=== PATIENT | female | born 1955 | race Caucasian/White ===

== ENCOUNTER → 2016-09-08 | Outpatient (CLI) | payer BC ==
[~2016-09-08] MED LIST: CHOL1000 PO; CHOL100027 PO; DILT120C67 PO; ESTR10TA PV; LEVO75TA PO; MULTTAB58 PO; NUTR1000 PO; PANT40TA PO; WARF-281 PO; WARF10TA4 PO; ZOLE5INJ IV
--- NOTE | 2016-09-08 12:40 | MAMMOGRAPHY REPORT ---
UNILATERAL LEFT DIGITAL DIAGNOSTIC MAMMOGRAM TOMOSYNTHESIS WITH CAD AND TARGETED LEFT ULTRASOUND: CLINICAL HISTORY: Six-month follow-up of questionable distortion in the left breast mammographically . The patient also reports a new area of focal pain in the left breast for approximately one month, without any associated lumps. TECHNIQUE: Breast tomosynthesis in addition to standard 2D mammography was performed. Current study was also evaluated with a Computer Aided Detection (CAD) system. Left CC and MLO 2-D and tomosynth esis images were obtained. COMPARISON: Comparison is made to exams dated: 04/23/2016 mammogram, 04/14/2016 mammogram, 04/10/2015 mammogram, 02/15/2014 mammogram, and 02/02/2013 mammogram - [facility]. BREAST COMPOSITION: The tissue of the left breast is heterogeneously dense, which may obscure small masses. FINDINGS: A triangle marker beebe the site of focal pain in the left lower inner quadrant. There a re no suspicious masses, calcifications, or areas of architectural distortion noted in the left treva st mammographically. There has been no significant interval change compared to prior exams. The pr eviously described area of questionable distortion seen within the left breast is not persist on the current exam, with appearance of this region similar to prior exams dating back to at least 2007. Targeted ultrasound was performed of the left lower inner quadrant at the site of pain pointed out b y the patient. Sonographically normal tissue is seen in this region, without evidence of a mass or other suspicious sonographic abnormality. IMPRESSION: ACR BI-RADS CATEGORY 2: BENIGN, TARGETED ULTRASOUND ACR BI-RADS CATEGORY 2: BENIGN No suspicious mammographic or sonographic abnormality at the site of focal left breast pain. No per sistent architectural distortion is seen on the current exam; findings are benign and compatible wit h normal fibroglandular tissue. There is no mammographic or targeted sonographic evidence of malign jackie. Return to annual mammogram screening schedule is recommended, due March 2017. Also recomm end clinical follow-up for left breast pain. The patient has been verbally notified of the results. Approximately 10% of breast cancers are not detected with mammography. A negative mammographic repor t should not delay biopsy if a clinically suggestive mass is present. Laura Gonzales M.D. ah/:09/08/2016 08:42:05 Cvicu Rn: Marcela NGUYEN(R)(M), [facility] letter sent: Normal / BI-RADS Code: ACR BI-RADS Category 2: Benign Ultrasound BI-RADS: ACR BI-RADS Category 2: Benign
== END | disposition home or self-care (01) ==
LOC: C.MAMM 08:08
PROVIDERS: ATTEND Obstetrics & Gynecology
DX: Z09 Encounter for follow-up examination after completed treatment for conditions other than malignant neoplasm (principal); N64.4 Mastodynia; R92.2 Inconclusive mammogram

== ENCOUNTER 2016-10-09 21:25 | Emergency (ER) | payer BC ==
[~2016-10-09] VITALS: Ht 167.6 cm; Wt 57.3 kg
[~2016-10-09 21:25] MED LIST changes: -CHOL1000 PO
[2016-10-09 21:32] VITALS: TEMP 37.1; Ht 167.6 cm; Wt 57.3 kg
[2016-10-09 22:34] LABS: HEMATOCRIT 40.2 % (37-47); MEAN CELL VOLUME 91.4 fL (80-100); MEAN CORPUSCULAR HEMOGLOBIN 30.9 pg (25-34); MEAN CORPUSCULAR HGB CONC 33.8 g/dl (32-36); MEAN PLATELET VOLUME 10.8 fL (7.4-10.4); PLATELET COUNT 205 K/uL (130-400); WHITE BLOOD COUNT 4.83 K/uL (4.8-10.8)
--- NOTE | 2016-10-09 22:41 | DIAGNOSTIC IMAGING REPORT ---
HEAD CT NONCONTRAST CT DOSE: 537.48 mGy.cm HISTORY: head injury, on coumadin TECHNIQUE: Multiaxial CT images of the head were performed without the use of intravenous contrast. Automated exposure control was utilized for this study. Comparison: Head CT 11/09/2006. Findings: The paranasal sinuses and mastoid air cells are clear. The calvarium and skull base are intact. The ventricles and sulci are within normal limits. There is no mass, hematoma, midline shift, or acute infarct. Impression: No acute intracranial abnormality. Electronically signed by: Lazaro Sequeira M.D. 10/09/2016 10:40 PM Dictated Date/Time: 10/09/2016 10:35 PM
[2016-10-09] MEDS ORDERED: CHOL1000 PO (22:58)
[2016-10-09 23:09] LABS: INR 1.9 (0.9-1.1); PARTIAL THROMBOPLASTIN RATIO 1.3; PROTHROMBIN TIME (PATIENT) 20.9 SECONDS (9.0-12.0)
[2016-10-09 23:26] LABS: BUN/CREATININE RATIO 11.1 (10-20); CALCIUM 8.4 mg/dl (8.5-10.1); CREATININE 0.81 mg/dl (0.60-1.20); POTASSIUM 4.1 mmol/L (3.5-5.1)
[2016-10-09 23:59] VITALS: BP 129/87; PULSE 76; O2SAT 98
[2016-10-10 01:16] LABS: BASO ABS # 0.05 K/uL (0-0.2); COMPLETE YES; EOS % 1.4 %; IG% 0.2 %; LYMPH % 50.5 %; LYMPH ABS # 2.44 K/uL (1.2-3.4); MONO % 8.5 %; NEUT % 38.4 %
--- NOTE | 2016-10-10 02:51 | EMERGENCY ROOM VISIT NOTE ---
History First contact with patient: 21:57 Chief Complaint: HEAD INJURY (MINOR) Stated Complaint: HIT HEAD ON WARFARIN,PAIN BEHIND EYE History of Present Illness The patient is a 60 year old female who presents to the Emergency Room with complaints of head injury tonight he is on Coumadin for history of blood clots who has a clotting disorder. Coumadin 2 weeks ago was 2.5. Patient states she was getting up from sitting position and accidentally hit her head on the wall. She complains of a headache described as throbbing, ranging in severity 5 out of 10 to the right temporal orbital region. Nothing makes it better or worse. Patient denies nausea, vomiting, diarrhea, facial pain, dental pain, cervical pain, loss of consciousness, chest pain, dyspnea, abdominal pain or any other medical complaints. Review of Systems See HPI for pertinent positives & negatives. A total of 10 systems reviewed and were otherwise negative. Past Medical/Surgical History Medical Problems: (1) Antiphospholipid antibody syndrome (2) Beta-2 glycoprotein (3) Lupus anticoagulant syndrome (4) Myocardial infarct Family History Hypertension Kidney disease Social History Smoking Status: Never Smoker Alcohol Use: none Drug Use: none Marital Status: Housing Status: lives with family Occupation Status: employed Current/Historical Medications Scheduled Cholecalciferol (Vitamin D3), 1 TAB PO DAILY Diltiazem Hcl Extended Release (Diltiazem Hcl Er), 120 MG PO DAILY Estradiol Vaginal (Vagifem), 1 TAB PV 2XWK Levothyroxine Sodium (Synthroid), 75 MCG PO DAILY Multiple Vitamin (Multivitamin), 1 TABLET PO DAILY Nutritional Supplements ([place] Oil), 500 MG PO DAILY Pantoprazole (Protonix), 40 MG PO DAILY Warfarin Sod (Jantoven), 5 MG PO WK Warfarin Sodium (Warfarin Sodium), 10 MG PO 6XWK Zoledronic Acid (Reclast), 5 MG IV YEARLY Allergies Coded Allergies: Adhesives (Verified Allergy, Intermediate, "BAND-AIDS" - REDNESS/ITCHING, 10/09/16) Azithromycin (Verified Allergy, Mild, ITCHING, 10/09/16) Succinylcholine (Verified Adverse Reaction, Intermediate, "muscle contraction for days", 10/09/16) Physical Exam Vital Signs Date Time Temp Pulse Resp B/P Pulse Ox O2 Delivery O2 Flow Rate FiO2 10/09/16 23:59 76 16 129/87 98 10/09/16 21:32 37.1 84 18 135/88 96 Room Air Pain Rating (0-10): 0 Physical Exam VITALS: Vitals are noted on the nurse's note and reviewed by myself. Vital signs stable. GENERAL: Pleasant female, in no acute distress, nondiaphoretic, well-developed well-nourished. SKIN: The skin was without rashes, erythema, edema, or bruising. There is no tenting of the skin. Capillary reflex less than 2 seconds. HEAD: Normocephalic atraumatic. Small forehead contusion, no facial bone tenderness EARS: External auditory canals clear, tympanic membranes pearly topete without erythema or effusion bilaterally. EYES: Pupils equal round and reactive to light and accommodation. Conjunctivae without injection, sclerae without icterus. Extraocular movements intact. NOSE: Patent, turbinates without inflammation or discharge. No sinus tenderness. MOUTH: Mucous membranes moist. Pharynx without erythema or exudate. Uvula midline. Airway patent. Tongue does not deviate. NECK: Supple without nuchal rigidity. No lymphadenopathy. No thyromegaly. Cervical spine is nontender. No JVD. HEART: Regular rate and rhythm without murmurs gallops or rubs. LUNGS: Clear to auscultation bilaterally without wheezes, rales or rhonchi. No dullness to percussion. No retractions or accessory muscle use. ABDOMEN: Positive bowel sounds x 4. Normal tympanic percussion. Soft, nontender, without masses or organomegaly. Baird sign negative. No guarding or rebound tenderness. MUSCULOSKELETAL: No muscle atrophy, erythema, or edema noted. NEURO: Patient was alert and oriented to person place and time. Normal sensation to light and sharp touch. No focal neurological deficits. Cranial nerves II through XII grossly intact. Cerebellar exam intact. No pronator drift. Medical Decision & Procedures Laboratory Results 10/09/16 22:22 Red Blood Count 4.40, Mean Corpuscular Volume 91.4, Mean Corpuscular Hemoglobin 30.9, Mean Corpuscular Hemoglobin Concent 33.8, Mean Platelet Volume 10.8, Neutrophils (%) (Auto) 38.4, Lymphocytes (%) (Auto) 50.5, Monocytes (%) (Auto) 8.5, Eosinophils (%) (Auto) 1.4, Basophils (%) (Auto) 1.0, Neutrophils # (Auto) 1.85, Lymphocytes # (Auto) 2.44, Monocytes # (Auto) 0.41, Eosinophils # (Auto) 0.07, Basophils # (Auto) 0.05 10/09/16 22:22 Test 10/09/16 22:22 White Blood Count 4.83 K/uL (4.8-10.8) Red Blood Count 4.40 M/uL (4.2-5.4) Hemoglobin 13.6 g/dL (12.0-16.0) Hematocrit 40.2 % (37-47) Mean Corpuscular Volume 91.4 fL (80-100) Mean Corpuscular Hemoglobin 30.9 pg (25-34) Mean Corpuscular Hemoglobin Concent 33.8 g/dl (32-36) Platelet Count 205 K/uL (130-400) Mean Platelet Volume 10.8 fL (7.4-10.4) Neutrophils (%) (Auto) 38.4 % Lymphocytes (%) (Auto) 50.5 % Monocytes (%) (Auto) 8.5 % Eosinophils (%) (Auto) 1.4 % Basophils (%) (Auto) 1.0 % Neutrophils # (Auto) 1.85 K/uL (1.4-6.5) Lymphocytes # (Auto) 2.44 K/uL (1.2-3.4) Monocytes # (Auto) 0.41 K/uL (0.11-0.59) Eosinophils # (Auto) 0.07 K/uL (0-0.5) Basophils # (Auto) 0.05 K/uL (0-0.2) RDW Standard Deviation 46.4 fL (36.4-46.3) RDW Coefficient of Variation 13.8 % (11.5-14.5) Immature Granulocyte % (Auto) 0.2 % Immature Granulocyte # (Auto) 0.01 K/uL (0.00-0.02) Prothrombin Time 20.9 SECONDS (9.0-12.0) Prothromb Time International Ratio 1.9 (0.9-1.1) Activated Partial Thromboplast Time 33.5 SECONDS (21.0-31.0) Partial Thromboplastin Ratio 1.3 Anion Gap 6.0 mmol/L (3-11) Est Creatinine Clear Calc Drug Dose 68.5 ml/min Estimated GFR () 92.8 Estimated GFR (Non- 80.1 BUN/Creatinine Ratio 11.1 (10-20) Calcium Level 8.4 mg/dl (8.5-10.1) Chemistry Specimen Hemolysis ED Course Prior records/ancillary studies reviewed. Triage Nursing notes reviewed. Additional history obtained from friend. The patient's history was concerning for traumatic head injury Differential diagnosis: Etiologies such as concussion, contusion, fracture, subdural hematoma, epidural hematoma, intraparenchymal hemorrhage, as well as other traumatic pathologies were entertained. Physical examination findings: As above. ER treatment provided: By mouth fluids On reassessment the patient felt better. Diagnostics interpreted by me: The labs revealed INR 1.9 Imaging studies: HISTORY: head injury, on coumadin TECHNIQUE: Multiaxial CT images of the head were performed without the use of intravenous contrast. Automated exposure control was utilized for this study. Comparison: Head CT 11/09/2006. Findings: The paranasal sinuses and mastoid air cells are clear. The calvarium and skull base are intact. The ventricles and sulci are within normal limits. There is no mass, hematoma, midline shift, or acute infarct. Impression: No acute intracranial abnormality. Electronically signed by: Lazaro Sequeira M.D. It appears the patient has a concussion. Patient is on Coumadin so CT imaging was ordered and this is unremarkable. Patient was neurovascularly and neurologically intact. She is advised follow-up family care in a few days or here in the ER sooner for headache, fevers, confusion, worsening signs or symptoms or as needed. By the evaluation outlined above emergent etiologies such as fracture, subdural hematoma, epidural hematoma, intraparenchymal hemorrhage, as well as others were deemed relatively unlikely. The pt informed about the findings as listed above. All questions were answered and pleased with the treatment. Return instructions were outlined and the patient was discharged in stable condition. Case reviewed with my attending Referral: The patient was referred back to their primary care physician for follow-up in 2 to 3 days for a recheck of the current condition. Medical Decision As above Impression Primary Impression: Closed head injury Departure Information Dispostion Home / Self-Care Condition GOOD Referrals Kolby Juarez M.D. (PCP) Forms HOME CARE DOCUMENTATION FORM, IMPORTANT VISIT INFORMATION Patient Instructions My [facility], ED Head Injury Closed Additional Instructions Coumadin level was 1.9. Read head injury handout and return for any symptoms. Tylenol 1000 mg as needed for pain (Maximum 3000 mg Tylenol in 24 hr period). Avoid alcohol and contact sports/activities for one week and follow up with family doctor prior to returning to these activities if still symptomatic. Ice and elevate head. If your symptoms persist more than a week then follow up with the concussion clinic. Call [phone]. Return to ER sooner for headache, fevers, confusion, worsening signs or symptoms or as needed. Problem Qualifiers Primary Impression: Closed head injury Encounter type: initial encounter Qualified Codes: S09.90XA - Unspecified injury of head, initial encounter
[2017-01-21] MEDS ORDERED: NUTR1000 PO (13:46)
== END 2016-10-10 | disposition home or self-care (01) ==
LOC: C.EDB 21:27 → C.EDA 10-10
DX: S09.90XA Unspecified injury of head, initial encounter (principal); W22.8XXA Striking against or struck by other objects, initial encounter; D68.61 Antiphospholipid syndrome; Z79.01 Long term (current) use of anticoagulants; I25.2 Old myocardial infarction

== ENCOUNTER → 2017-04-15 | Outpatient (CLI) | payer BC ==
[~2017-04-15] MED LIST changes: +CHOL1000 PO; -CHOL100027 PO
--- NOTE | 2017-04-15 15:17 | MAMMOGRAPHY REPORT ---
BILATERAL DIGITAL SCREENING MAMMOGRAM TOMOSYNTHESIS WITH CAD: 04/15/2017 CLINICAL HISTORY: Routine screening. Patient has no complaints. TECHNIQUE: Breast tomosynthesis in addition to standard 2D mammography was performed. Current study was also evaluated with a Computer Aided Detection (CAD) system. COMPARISON: Comparison is made to exams dated: 09/08/2016 ultrasound, 09/08/2016 mammogram, 04/23/2016 mammogram, 04/14/2016 mammogram, 04/10/2015 mammogram, and 02/15/2014 mammogram - [facility]. BREAST COMPOSITION: The tissue of both breasts is heterogeneously dense, which may obscure small mas ses. FINDINGS: There are a few stable benign rim calcifications bilaterally. No new suspicious mass, arch itectural distortion or cluster of microcalcifications is seen. IMPRESSION: ACR BI-RADS CATEGORY 1: NEGATIVE There is no mammographic evidence of malignancy. A 1 year screening mammogram is recommended. The pa tient will receive written notification of the results. Approximately 10% of breast cancers are not detected with mammography. A negative mammographic report should not delay biopsy if a clinically suggestive mass is present. Elo Schofield M.D. ay/:04/15/2017 14:13:26 Statistical Technician: Marcela NGUYEN(Vasyl)(M), [facility] letter sent: Normal 1/2 BI-RADS Code: ACR BI-RADS Category 1: Negative
== END | disposition home or self-care (01) ==
LOC: C.MAMM 13:41
PROVIDERS: ATTEND Obstetrics & Gynecology
DX: Z12.31 Encounter for screening mammogram for malignant neoplasm of breast (principal)

== ENCOUNTER → 2017-05-14 | Outpatient (CLI) | payer BC ==
[~2017-05-14] MED LIST changes: -ZOLE5INJ IV
[2017-05-14 15:14] LABS: CALCIUM 8.3 mg/dl (8.5-10.1); CREATININE 0.75 mg/dl (0.60-1.20); MAGNESIUM 2.3 mg/dl (1.8-2.4)
== END | disposition home or self-care (01) ==
LOC: C.LAB1850 13:59
PROVIDERS: ATTEND Internal Medicine Endocrinology, Diabetes & Metabolism
DX: M81.0 Age-related osteoporosis without current pathological fracture (principal); R79.89 Other specified abnormal findings of blood chemistry; E03.9 Hypothyroidism, unspecified

== ENCOUNTER → 2017-05-18 | Outpatient (CLI) | payer BC | END | disposition home or self-care (01) | LOC: C.LAB1850 07:49 | PROVIDERS: ATTEND Internal Medicine Endocrinology, Diabetes & Metabolism | DX: M81.0 Age-related osteoporosis without current pathological fracture (principal); E03.9 Hypothyroidism, unspecified; R79.89 Other specified abnormal findings of blood chemistry ==

== ENCOUNTER → 2017-06-04 | Outpatient (CLI) | payer BC ==
--- NOTE | 2017-06-04 10:46 | DIAGNOSTIC IMAGING REPORT ---
L FOOT MIN 3 VIEWS ROUTINE HISTORY: 61 years-old Female M81.0 [id number] Foot [id number] acute left-sided foot pain with osteoporosis COMPARISON: Left foot radiographs 01/20/2012 TECHNIQUE: 3 views of the left foot FINDINGS: The bones are moderately demineralized. Mild degenerative changes are seen within the first MTP joint and throughout the interphalangeal joints. No acute fracture or dislocation. No evidence of stress fracture. Minimal spurring about the calcaneus and dorsal talus. IMPRESSION: 1. No acute fracture or dislocation. 2. Mild degenerative changes with moderate bone demineralization. The above report was generated using voice recognition software. It may contain grammatical, syntax or spelling errors. Electronically signed by: Sha Culp M.D. 06/04/2017 10:44 AM Dictated Date/Time: 06/04/2017 10:42 AM
== END | disposition home or self-care (01) ==
LOC: C.RAD1850 10:23
PROVIDERS: ATTEND Internal Medicine Endocrinology, Diabetes & Metabolism
DX: M81.0 Age-related osteoporosis without current pathological fracture (principal)

== ENCOUNTER → 2017-08-10 | Outpatient (CLI) | payer BC ==
[~2017-08-10] MED LIST changes: +CALC-335 PO
== END | disposition home or self-care (01) ==
LOC: C.LAB1850 08:07
PROVIDERS: ATTEND Internal Medicine Endocrinology, Diabetes & Metabolism
DX: E83.51 Hypocalcemia (principal)

== ENCOUNTER → 2017-09-16 | Outpatient (CLI) | payer BC ==
--- NOTE | 2017-09-16 14:13 | DIAGNOSTIC IMAGING REPORT ---
ULTRASOUND OF THE THYROID GLAND CLINICAL HISTORY: Thyroid nodules. COMPARISON STUDY: Thyroid ultrasound dated 10/17/2015. TECHNIQUE: Real-time, grayscale, and color flow sonography of the thyroid gland is performed utilizing a high-frequency linear transducer. Images are reviewed in the transverse and longitudinal planes. FINDINGS: Right lobe: The right lobe of the thyroid gland is diminutive and homogeneous in echotexture, measuring 5.3 x 0.8 x 1.0 cm. A hypoechoic nodule in the lower pole measures 0.7 x 0.4 x 0.4 cm (previously measured 0.9 x 0.4 x 0.6 cm). Left lobe: The left lobe of the thyroid gland is diminutive and homogeneous in echotexture, measuring 2.6 x 0.9 x 0.6 cm. No left-sided nodules are identified. Isthmus: The thyroid isthmus is diminutive. IMPRESSION: 1. The thyroid gland is atrophic. 2. A subcentimeter low suspicion nodule in the right lower pole has not significantly changed from 2016. Electronically signed by: Arnie Kiser M.D. 09/16/2017 2:12 PM Dictated Date/Time: 09/16/2017 2:10 PM
== END | disposition home or self-care (01) ==
LOC: C.ULTRBC 13:18
PROVIDERS: ATTEND Internal Medicine Endocrinology, Diabetes & Metabolism
DX: E04.2 Nontoxic multinodular goiter (principal)

== ENCOUNTER → 2017-10-21 | Outpatient (CLI) | payer BC ==
--- NOTE | 2017-10-21 08:24 | DIAGNOSTIC IMAGING REPORT ---
ABDOMEN COMPLETE (US) CLINICAL HISTORY: Abdominal pain COMPARISON STUDY: No previous studies for comparison. FINDINGS: The pancreas appears normal as visualized. The gallbladder appears sonographically normal. There is a 23 mm septated cyst within the right lobe of the liver. There is no ductal dilatation. The common bile duct measures 5 mm. The right kidney measures 10.8 cm in length. The left kidney measures 10 cm in length. No renal masses are visualized. There is no hydronephrosis. The spleen measures 9 cm in length and appears sonographically normal. No abnormalities of the IVC or aorta are visualized. IMPRESSION: 23 mm septated cyst within the right lobe of the liver. Otherwise unremarkable abdominal ultrasound. Electronically signed by: Octavio Fabian M.D. 10/21/2017 8:22 AM Dictated Date/Time: 10/21/2017 8:21 AM
== END | disposition home or self-care (01) ==
LOC: C.ULTR 07:14
PROVIDERS: ATTEND Nurse Practitioner
DX: K76.89 Other specified diseases of liver (principal); R10.32 Left lower quadrant pain

== ENCOUNTER → 2017-11-11 | Outpatient (CLI) | payer BC ==
[~2017-11-11] MED LIST changes: +OPTIRAY 320 IV PRN
--- NOTE | 2017-11-11 08:01 | DIAGNOSTIC IMAGING REPORT ---
ABDOMEN AND PELVIS CT WITH IV AND ORAL CONTRAST CT DOSE: 281.11 mGy.cm HISTORY: Acute left lower quadrant abdominal pain with history of colonic diverticular disease ACUTE ABD PAIN, LLQ TECHNIQUE: Multiaxial CT images of the abdomen and pelvis were performed following the use of intravenous and oral contrast. A dose lowering technique was utilized adhering to the principles of ALARA. COMPARISON STUDY: CT abdomen and pelvis 06/16/2007, abdominal ultrasound 3 28,018 FINDINGS: Mild subsegmental linear atelectasis/scarring of the lung bases. There is no pneumatosis or pneumoperitoneum. Imaged inferior cardiac chambers are unremarkable. Trace pericardial effusion. Scattered low attenuating lesions throughout the liver measuring up to 1.9 cm within the right hepatic lobe suggests hepatic cysts. 1.9 cm cyst has increased in size from comparison CT which previously measured 5 mm. Septation described on comparison ultrasound is not well seen by CT. No intrahepatic biliary ductal dilation. Spleen, pancreas, gallbladder and adrenal glands are within normal limits. 3 mm low attenuating lesion of the inferior pole left kidney is too small to characterize however suggests renal cyst. There is no renal calculi, or hydronephrosis. Partial distention of the bladder with mild circumferential wall thickening. Prior hysterectomy. Phleboliths of the pelvis. No adnexal mass lesions identified. No aortic aneurysm. No bulky adenopathy. Patent portal vein. No bowel obstruction or focal bowel wall thickening identified. Moderate volume of formed stool throughout the colon. Tortuosity of the sigmoid colon. Extensive sigmoid diverticulosis without definite CT evidence of acute diverticulitis. No significant mesenteric inflammatory changes or ascites. Fecal contents of the terminal ileum suggest delayed bowel transit.. No evidence of acute appendicitis. Soft tissues are unremarkable. Bones appear intact. IMPRESSION: 1. Extensive sigmoid colon diverticulosis without CT evidence of acute diverticulitis. 2. No bowel obstruction or focal bowel wall thickening. 3. Moderate stool volume suggests constipation with stool contents of the terminal ileum suggesting delayed bowel transit. 4. Additional findings as above. Electronically signed by: Sha Culp M.D. 11/11/2017 8:00 AM Dictated Date/Time: 11/11/2017 7:48 AM
== END | disposition home or self-care (01) ==
LOC: C.CTS 07:13
PROVIDERS: ATTEND Nurse Practitioner
DX: R10.32 Left lower quadrant pain (principal); K57.30 Diverticulosis of large intestine without perforation or abscess without bleeding; K59.00 Constipation, unspecified

== ENCOUNTER → 2017-11-18 | Outpatient (CLI) | payer BC ==
[~2017-11-18] MED LIST changes: +MISCCAP80 PO; -OPTIRAY 320 IV PRN
[2017-11-18 16:53] LABS: ALBUMIN 3.7 gm/dl (3.4-5.0); ALT/SGPT 27 U/L (12-78); AST/SGOT 22 U/L (15-37); BLOOD UREA NITROGEN 15 mg/dl (7-18); CALCIUM 8.9 mg/dl (8.5-10.1); CARBON DIOXIDE 34 mmol/L (21-32); CREATININE 0.79 mg/dl (0.60-1.20); GLUCOSE 97 mg/dl (70-99); POTASSIUM 3.8 mmol/L (3.5-5.1); SODIUM 139 mmol/L (136-145)
[2017-11-18 17:05] LABS: ALKALINE PHOSPHATASE 63 U/L (45-117); TOTAL PROTEIN 7.1 gm/dl (6.4-8.2)
== END | disposition home or self-care (01) ==
LOC: C.LAB1850 14:18
PROVIDERS: ATTEND Internal Medicine Endocrinology, Diabetes & Metabolism
DX: E03.9 Hypothyroidism, unspecified (principal); E83.59 Other disorders of calcium metabolism; E83.51 Hypocalcemia; G60.0 Hereditary motor and sensory neuropathy; R79.89 Other specified abnormal findings of blood chemistry

== ENCOUNTER → 2017-12-15 | Outpatient (CLI) | payer BC ==
--- NOTE | 2017-12-15 09:34 | DIAGNOSTIC IMAGING REPORT ---
MRI OF THE LEFT ANKLE WITHOUT IV CONTRAST CLINICAL HISTORY: Left ankle pain. COMPARISON STUDY: Radiographs of the left ankle dated 10/10/2013. Radiographs of the left foot dated 06/04/2017. TECHNIQUE: MRI of the left ankle is performed utilizing various T1 and T2-weighted sequences in the axial, sagittal, and coronal planes. IV contrast was not administered for this examination. FINDINGS: There is no MRI evidence of fracture or osteonecrosis. No osteochondral defect is identified in the talar dome. There is no MRI evidence of tarsal coalition. The Achilles tendon is normal in morphology and signal intensity. There is significant edema within Kager's fat pad as well as a retrocalcaneal bursal effusion. There is maintenance of normal fat within the sinus tarsi. No ankle joint effusion is identified. Arthritic change is seen at the fourth tarsometatarsal articulation with significant marrow edema within the anterior aspect of the cuboid. There is no clear evidence of insufficiency fracture. Mild surrounding soft tissue edema is noted. The cutaneous marker at the site of interest overlies this site. The anterior, posterior, and peroneal tendons are intact. The visualized plantar fascia is normal in appearance. There has been age indeterminant and likely chronic tearing of the anterior talofibular ligament as well as the anterior tibiofibular ligament. The deltoid and spring ligaments are intact as visualized. IMPRESSION: 1. There is arthritic change at the fourth tarsometatarsal articulation with significant marrow edema involving the anterior aspect of the cuboid. This is located deep to the cutaneous marker at the indicated site of pain. 2. There is no MRI evidence of fracture. 3. There is marked soft tissue edema within Kager's fat pad as well as a small retrocalcaneal bursal effusion. The Achilles tendon is normal in morphology. 4. There is age indeterminant and likely chronic tearing of the anterior tibiofibular and anterior talofibular ligaments. Dictated: 12/15/2017 8:41 AM Transcribed: 12/15/2017 9:34 AM Luis M Electronically signed by: Arnie Kiser M.D. 12/15/2017 9:57 AM Dictated Date/Time: 12/15/2017 8:41 AM
== END | disposition home or self-care (01) ==
LOC: C.MRI 07:47
PROVIDERS: ATTEND Podiatrist Foot & Ankle Surgery
DX: M77.8 Other enthesopathies, not elsewhere classified (principal)